=== PATIENT | female | born 1970 | race Caucasian/White ===

== ENCOUNTER → 2025-02-09 14:43 | Outpatient (REF) | payer OTHER, SELFPAY | LOC: HWWDC 14:43 | PROVIDERS: ATTENDING PHYSICIAN Family Medicine | DX: Z12.31 Encounter for screening mammogram for malignant neoplasm of breast (principal) | CPT/HCPCS: 77063; 77067 ==

== ENCOUNTER → 2025-02-21 09:24 | Outpatient (REF) | payer OTHER, SELFPAY | LOC: WDC 09:24 | PROVIDERS: ATTENDING PHYSICIAN Family Medicine | DX: R92.8 Other abnormal and inconclusive findings on diagnostic imaging of breast (principal) | CPT/HCPCS: 76642 ==

== ENCOUNTER → 2025-02-27 09:04 | Outpatient (REF) | payer OTHER, SELFPAY ==
--- NOTE | 2025-02-27 14:25 | OID.BR.INTR ---
[facility] Navigator - Initial
- -
Date of Contact: 02/27/25
Met with patient. Patient given written information on navigator service available at [facility]. Will follow up as needed per protocol.
== END ==
LOC: WDC 09:04
PROVIDERS: ATTENDING PHYSICIAN Family Medicine
DX: N63.12 Unspecified lump in the right breast, upper inner quadrant (principal); N63.32 Unspecified lump in axillary tail of the left breast
CPT/HCPCS: 19083; 19084; 88305; 88341; 88360; A4648

== ENCOUNTER → 2025-03-18 11:19 | Outpatient (REF) | payer OTHER, SELFPAY | LOC: MRI 3T 11:19 | PROVIDERS: ATTENDING PHYSICIAN Surgery; FAMILY PHYSICIAN Family Medicine | DX: C50.412 Malignant neoplasm of upper-outer quadrant of left female breast (principal) | CPT/HCPCS: 77049; A9585 ==

== ENCOUNTER → 2025-03-22 10:18 | Outpatient (REF) | payer OTHER, SELFPAY | LOC: RCS 10:18 | PROVIDERS: ATTENDING PHYSICIAN Internal Medicine Hematology & Oncology; FAMILY PHYSICIAN Family Medicine | DX: C83.32 Diffuse large B-cell lymphoma, intrathoracic lymph nodes (principal); D72.818 Other decreased white blood cell count; C50.412 Malignant neoplasm of upper-outer quadrant of left female breast | CPT/HCPCS: 93306; 93356 ==

== ENCOUNTER → 2025-03-23 10:33 | Outpatient (REF) | payer OTHER, SELFPAY | LOC: RAD 10:33 | PROVIDERS: ATTENDING PHYSICIAN Surgery | DX: C50.412 Malignant neoplasm of upper-outer quadrant of left female breast (principal); Z17.1 Estrogen receptor negative status [ER-] | CPT/HCPCS: 71260; 74177; 78803; A9503; Q9967 ==

== ENCOUNTER → 2025-03-27 07:19 | Outpatient (REF) | payer OTHER, SELFPAY ==
[2025-03-27 07:40] VITALS: BP 136/95; BP_SYST 85
[2025-03-27] MEDS: ANCEF 10 IV (08:06)
[2025-03-27 09:30] VITALS: BP 128/97
== END ==
LOC: RADI 07:19
PROVIDERS: ATTENDING PHYSICIAN Internal Medicine Hematology & Oncology; FAMILY PHYSICIAN Family Medicine
DX: C50.412 Malignant neoplasm of upper-outer quadrant of left female breast (principal)
CPT/HCPCS: 36561; 76937; 77001; 99152; 99153; C1788

== ENCOUNTER → 2025-04-06 16:39 | Outpatient (REF) | payer OTHER, SELFPAY | LOC: MRI 3T 16:39 | PROVIDERS: ATTENDING PHYSICIAN Internal Medicine Hematology & Oncology; FAMILY PHYSICIAN Family Medicine | DX: C50.412 Malignant neoplasm of upper-outer quadrant of left female breast (principal) | CPT/HCPCS: 72197; A9575 ==

== ENCOUNTER → 2025-04-08 07:36 | Outpatient (REF) | payer OTHER, SELFPAY | LOC: MRI 07:36 | PROVIDERS: ATTENDING PHYSICIAN Internal Medicine Hematology & Oncology | DX: C50.412 Malignant neoplasm of upper-outer quadrant of left female breast (principal) | CPT/HCPCS: 74183; A9575 ==

== ENCOUNTER 2025-04-16 08:46 | Outpatient (REF) | payer OTHER, SELFPAY ==
[2025-04-16] VITALS (13 sets, daily range): BP systolic 21–126; BP diastolic 67–83
[2025-04-16 09:04] LABS: Hematocrit 33.4 % (37.0-47.0); Hemoglobin 11.2 g/dL (12.0-16.0); Mean Corp Hgb Conc. 33.5 g/dL (33.0-37.0); Mean Corpuscular Volume 95.7 fL (81.0-99.0); Nucleated Red Blood Cells % 0 %; Platelet Count 223 10^3/uL (130-400); Red Cell Dist. Width 12.4 % (11.5-14.5)
[2025-04-16 09:17] LABS: INR 0.97; PT 13.0 Sec (11.4-14.6)
[2025-04-16] MEDS: TYLENOL 650 MG PO (14:25)
== END 2025-04-16 15:35 | disposition home or self-care (01) ==
LOC: RADI 08:46
PROVIDERS: ATTENDING PHYSICIAN Internal Medicine Hematology & Oncology
DX: K76.89 Other specified diseases of liver (principal); D68.8 Other specified coagulation defects; K76.0 Fatty (change of) liver, not elsewhere classified; C50.412 Malignant neoplasm of upper-outer quadrant of left female breast; C83.32 Diffuse large B-cell lymphoma, intrathoracic lymph nodes
CPT/HCPCS: 36415; 47000; 76942; 85025; 85610; 88307; 88313; 88333; 88334; 88341; 88342; 99152; 99153